=== PATIENT | female | born 1990 | race Caucasian/White ===

== ENCOUNTER 2019-06-06 21:09 | Emergency (ER) | payer OTHER ==
--- NOTE | 2019-06-06 21:23 | EDM.PDOC ---
ED HPI GENERAL MEDICAL PROBLEM - General Chief Complaint: General Stated Complaint: PANIC ATTACKS Time Seen by Provider: 06/06/19 21:35 Source of Information: Reports: Patient History Limitations: Reports: No Limitations - History of Present Illness INITIAL COMMENTS - FREE TEXT/NARRATIVE: pt is the area giving a class and she arrived very panicy and feeling like her heart was racing. She has a history of panic attacks but 2 days ago she was placed on zoloft and it has been more constant since that time. She has been on zoloft in the past and she feele like it was very helpful to her. She was startedon 50 mg and not worked up. She also press tender smoke signal had some chills and feels like she has a viral illness. Onset: Other (pt states the panic attascks have been alot worse today. ) Duration: Hour(s): Location: Reports: Generalized - Related Data Allergies Allergy/AdvReac Type Severity Reaction Status Date / Time Penicillins Allergy Hives Verified 06/06/19 21:27 Sulfa (Sulfonamide Allergy Hives Verified 06/06/19 21:27 Antibiotics) sulfamethoxazole Allergy Hives Verified 06/06/19 21:27 [From Marra] trimethoprim [From ] Allergy Hives Verified 06/06/19 21:27 Home Meds: Home Meds Cetirizine [ZyrTEC] 1 tab PO DAILY 06/06/19 [History] Sertraline [Zoloft] 1 tab PO DAILY 06/06/19 [History] hydrOXYzine HCl [hydrOXYzine] 1 tab PO TID PRN 06/06/19 [History] ED ROS GENERAL - Review of Systems Review Of Systems: See Below Constitutional: Reports: Diaphoresis, Other ( anxious) HEENT: Reports: No Symptoms Respiratory: Reports: No Symptoms Cardiovascular: Reports: No Symptoms Endocrine: Reports: No Symptoms GI/Abdominal: Reports: No Symptoms : Reports: No Symptoms Musculoskeletal: Reports: No Symptoms Skin: Reports: No Symptoms Neurological: Reports: No Symptoms Psychiatric: Reports: Anxiety ED EXAM, GENERAL - Physical Exam Exam: See Below Free Text/Narrative:: pt arrived feeling very panicy and having her heart race. She just started on Zoloft and that has seemed to make it worse. Exam Limited By: No Limitations General Appearance: Alert, Anxious, Moderate Distress Eye Exam: Right Eye: Normal Inspection Ears: Normal TMs Nose: Normal Inspection Throat/Mouth: Normal Inspection Head: Atraumatic Neck: Normal Inspection Respiratory/Chest: No Respiratory Distress Cardiovascular: Regular Rate, Rhythm, Tachycardia GI/Abdominal: Soft, Non-Tender Rectal (Female) Exam: Deferred Back Exam: Normal Inspection Extremities: Normal Inspection Neurological: Alert, Oriented, Normal Cognition Psychiatric: Anxious Course - Vital Signs Last Recorded V/S: Last Vital Signs Temp 37.4 C 06/06/19 21:30 Pulse 99 06/06/19 21:30 Resp 16 06/06/19 21:30 BP 134/78 06/06/19 21:30 Pulse Ox 99 06/06/19 21:30 - Orders/Labs/Meds Labs: Laboratory Tests 06/06/19 06/06/19 06/06/19 Range/Units 22:06 22:06 22:12 WBC 6.2 (4.5-11.0) K/uL RBC 4.12 (3.30-5.50) M/uL Hgb 11.9 L (12.0-15.0) g/dL Hct 35.3 L (36.0-48.0) % MCV 86 (80-98) fL MCH 29 (27-31) pg MCHC 34 (32-36) % Plt Count 366 (150-400) K/uL Neut % (Auto) 66 (36-66) % Lymph % (Auto) 25 (24-44) % [place] % (Auto) 8 H (2-6) % Eos % (Auto) 0 L (2-4) % Baso % (Auto) 0 (0-1) % Sodium 137 L (140-148) mmol/L Potassium 3.4 L (3.6-5.2) mmol/L Chloride 101 (100-108) mmol/L Carbon Dioxide 22 (21-32) mmol/L Anion Gap 17.4 H (5.0-14.0) mmol/L BUN 6 L (7-18) mg/dL Creatinine 0.8 (0.6-1.0) mg/dL Est Cr Clr Drug Dosing 74.53 mL/min Estimated GFR (MDRD) > 60 (>60) Glucose 98 (74-106) mg/dL Calcium 9.0 (8.5-10.1) mg/dL Total Bilirubin 0.8 (0.2-1.0) mg/dL AST 20 (15-37) U/L ALT 19 (12-78) U/L Alkaline Phosphatase 65 (46-116) U/L Total Protein 7.7 (6.4-8.2) g/dL Albumin 3.7 (3.4-5.0) g/dL Globulin 4.0 H (2.3-3.5) g/dL Albumin/Globulin Ratio 0.9 L (1.2-2.2) Urine Color Yellow (YELLOW) Urine Appearance Clear (CLEAR) Urine pH 6.0 (5.0-8.0) Ur Specific [place] <= 1.005 L (1.008-1.030) Urine Protein Negative (NEGATIVE) mg/dL Urine Glucose (UA) Negative (NEGATIVE) mg/dL Urine Ketones 40 H (NEGATIVE) mg/dL Urine Occult Blood Trace-intact H (NEGATIVE) Urine Nitrite Negative (NEGATIVE) Urine Bilirubin Negative (NEGATIVE) Urine Urobilinogen 0.2 (0.2-1.0) EU/dL Ur Leukocyte Esterase Negative (NEGATIVE) Urine RBC 0-5 (0-5) Urine WBC 0-5 (0-5) Ur Epithelial Cells Few Amorphous Sediment Rare Urine Bacteria Not seen Urine Mucus Not seen Meds: Medications Discontinued Medications Generic Name Dose Route Start Last Admin Trade Name [place] PRN Reason Stop Dose Admin Acetaminophen 650 mg 06/06/19 21:58 06/06/19 22:04 Tylenol PO 06/06/19 21:59 650 mg NOW ONE Administration Lorazepam 0.5 mg 06/06/19 21:57 06/06/19 22:04 Ativan PO 06/06/19 21:58 0.5 mg ONETIME ONE Administration Lorazepam 0.5 mg 06/06/19 22:43 06/06/19 22:49 Ativan PO 06/06/19 22:44 0.5 mg ONETIME ONE Administration - Re-Assessments/Exams Free Text/Narrative Re-Assessment/Exam: 06/06/19 23:21 pt was given a mg of ativan and is feeling better her wbc was normal, her urine was clear, and other electrolytes looked good. Departure - Departure Time of Disposition: 23:17 Disposition: Home, Self-Care 01 Condition: Fair Clinical Impression: Anxiety - Discharge Information Referrals: PCP,None [Primary Care Provider] - Forms: ED Department Discharge Care Plan Goals: hold zoloft tomorrow, the next day start on 1/2 tab--25 mg daily;ativan 1 mg -1/ 2 tab when she arrives back to her room and may repeat another half.. after that 1 tab q6h prn for anxiety.
[2019-06-06] MEDS ORDERED: LORazepam 0.5 MG Tab PO ONE ×2 (21:57→22:43)
[2019-06-06] MEDS ORDERED: Acetaminophen 325 MG Tab PO ONE (21:58)
== END 2019-06-06 23:48 | disposition home or self-care (01) ==
LOC: JP.ED 21:09
DX: F41.9 Anxiety disorder, unspecified (principal); Z88.0 Allergy status to penicillin; Z88.2 Allergy status to sulfonamides; Z88.1 Allergy status to other antibiotic agents
CPT/HCPCS: 36415; 80053; 81001; 84443; 85025; 99284; A9270